=== PATIENT | male | born 1950 | race Caucasian/White ===

== ENCOUNTER 2020-05-17 10:56 | Emergency (ER) | payer MEDICARE, OTHER ==
[~2020-05-17] VITALS: Ht 175.3 cm; Wt 97.3 kg
[~2020-05-17 10:56] MED LIST: ASPIRIN 81M81 MG/TA2 PO; BENGAY VANISHIN57 GM TP; CLARITIN 1010 MG/TAB PO; CRESTOR 10MG10 MG PO; CRESTOR20 MG PO; DINO-LIFE1 CTB PO; ELIQUIS 5MG PO; FLOMAX 0.40.4 MG/CAP PO; FLONASE NASAL S16 GM NS; GLUCOPHAGE1000 MG PO; GLUCOSAMINE 1000; LASIX 40MG TABL40 MG PO; LEADER EYE ITCH5 ML OP; LOPRESSOR 225 MG/TAB PO; LOPRESSOR 550 MG/TAB PO; LUTEIN6 MG; MASON NATURAL1200 MG PO; MELATONIN3 M1 PO; MOBIC15 MG PO; NITROSTAT0.4 MG/TAB SL; PACERONE400 MG PO; PLAVIX 75MG TAB75 MG PO; PRIL40 PO; SYNTHROID0.075 MG/T PO; THERACRAN650 MG PO; VITAMIN D31000 I1 PO; WELLBUTRIN XL150 MG PO; ZOLOFT 100MG100 MG PO
[2020-05-17 10:59] VITALS: TEMP 98.1
[2020-05-17 11:17] LABS: HEMOGLOBIN 11.1 g/dl (13.5-18.0); MEAN CELL VOLUME 96 fl (80.0-100.0); MEAN CORPUSCULAR HEMOGLOBIN 31 pg (27.0-31.0); MEAN CORPUSCULAR HGB CONC 32 g/dl (33.0-37.0); MEAN PLATELET VOLUME 9.2 fl (7.4-10.4); PLATELET COUNT 525 K/mm3 (130-400); RED BLOOD COUNT 3.63 M/mm3 (4.20-5.60); REDCELL DISTRIBUTION WIDTH-CV 13.4 % (11.5-14.5)
[2020-05-17 11:19] LABS: HEMATOCRIT 34.8 % (42.0-52.0); INR 1.3 (0.8-3.0); PROTHROMBIN TIME 14.3 SECONDS (9.7-12.8)
[2020-05-17 11:28] LABS: ALBUMIN 3.9 gm/dL (3.5-5.0); BILIRUBIN,TOTAL 0.4 mg/dL (0.0-1.0); CALCIUM 9.1 mg/dL (8.4-10.2); CREATININE, serum 0.73 (0.66-1.25); POTASSIUM 4.3 mmol/L (3.4-5.0); TOTAL PROTEIN 7.8 gm/dL (6.4-8.2)
[2020-05-17] MEDS ORDERED: SANCTURA20 MG PO (11:33)
[2020-05-17] MEDS ORDERED: NATURAL E400 IU PO (11:34)
[2020-05-17] MEDS ORDERED: B-121000 MCG PO (11:34)
[2020-05-17 11:39] LABS: BAND 7 % (0-10); EOSINOPHIL 1 % (0-4); LYMPHOCYTE 23 % (20.0-51.0); METAMYELOCYTE 3 % (0-0); MYELOCYTE 1 % (0-0); NEUTROPHILS 63 % (42.0-75.2); PLATELET ESTIMATE INCREASED (NORMAL); TROPONIN-I 0.016 ng/mL (0.000-0.035)
[2020-05-17 11:56] LABS: PARTIAL THROMBOPLASTIN TIME 34.2 SECONDS (26.0-37.0)
[2020-05-17 12:19] VITALS: BP 121/69; PULSE 70
== END 2020-05-17 12:34 | disposition short-term general hospital (02) ==
LOC: COL.ER 10:56
PROVIDERS: Emergency Medicine
DX: R07.89 Other chest pain (principal); I48.91 Unspecified atrial fibrillation; K21.9 Gastro-esophageal reflux disease without esophagitis; E11.9 Type 2 diabetes mellitus without complications; F43.10 Post-traumatic stress disorder, unspecified; Z95.9 Presence of cardiac and vascular implant and graft, unspecified; Z79.02 Long term (current) use of antithrombotics/antiplatelets; Z79.51 Long term (current) use of inhaled steroids; Z79.01 Long term (current) use of anticoagulants; Z79.84 Long term (current) use of oral hypoglycemic drugs; Z79.890 Hormone replacement therapy
CPT/HCPCS: J1644; J2270; J2405; J7030

== ENCOUNTER → 2022-01-22 | Outpatient (CLI) | payer MEDICARE, OTHER ==
[~2022-01-22] MED LIST changes: +B-121000 MCG PO; +NATURAL E400 IU PO; +SANCTURA20 MG PO
== END ==
LOC: COL.RAD 10:34
DX: R06.00 Dyspnea, unspecified (principal)
CPT/HCPCS: Q9967

== ENCOUNTER → 2022-04-24 | Outpatient (CLI) | payer OTHER | LOC: COL.PUL 12:51 | DX: J98.4 Other disorders of lung (principal) | CPT/HCPCS: J7674 ==

== ENCOUNTER → 2023-11-24 | Outpatient (CLI) | payer OTHER ==
[~2023-11-24] MED LIST changes: +ABILIFY 10MG TA10 MG PO; +ALDACTONE 25MG25 M1 PO; +HYDROCORTISONE30 G3 TP; +IMDUR 60MG60 MG/TAB PO; +PACERONE100 MG PO; +PROAIR HFA0.09 MG/AC IH; +PROTONIX 40MG T40 MG PO; +RANEXA 500MG T500 MG PO; +SENEXON-S 50-81 EACH PO; +TOPROL XL 25MG25 MG PO
== END ==
LOC: MHCPAIN 13:24
DX: M47.816 Spondylosis without myelopathy or radiculopathy, lumbar region (principal); M47.814 Spondylosis without myelopathy or radiculopathy, thoracic region; M79.18 Myalgia, other site
CPT/HCPCS: G0463

== ENCOUNTER → 2024-01-28 | Outpatient (CLI) | payer OTHER | LOC: MHCPAIN 09:27 | DX: M47.817 Spondylosis without myelopathy or radiculopathy, lumbosacral region (principal); M54.50 Low back pain, unspecified | CPT/HCPCS: J0665 ==